=== PATIENT | female | born 1960 | race Caucasian/White ===

== ENCOUNTER 2016-09-18 20:30 | Emergency (ER) | payer BC ==
[~2016-09-18] VITALS: Ht 177.8 cm; Wt 77.3 kg
[2016-09-18 20:39] VITALS: TEMP 98.2
[2016-09-18 21:06] LABS: PH 8 (5-8); SQUAMOUS EPITHELIAL 0-2 /hpf; URINE APPEARANCE Clear; URINE BACTERIA Rare /hpf; URINE BILIRUBIN Negative (NEGATIVE); URINE BLOOD Negative (NEGATIVE); URINE COLOR Straw; URINE GLUCOSE Negative (NEGATIVE); URINE KETONE Negative (NEGATIVE); URINE RBC None Seen /hpf; URINE UROBILINOGEN Negative (NEGATIVE)
[2016-09-18] MEDS ORDERED: PAXIL 20MG20 MG PO (21:14)
[2016-09-18] MEDS ORDERED: AZOR 10 MG-20 M1 TAB PO (21:14)
[2016-09-18] MEDS ORDERED: BYSTOLIC10 MG PO (21:15)
[2016-09-18] MEDS ORDERED: ZOLOFT 50MG50 MG PO (21:15)
[2016-09-18 21:16] LABS: BASO # 0.1 (0.0-0.2); BASO % 0.7 % (0.0-2.0); EOS # 0.2 (0.0-0.7); EOS % 2.2 % (0-4.0); GRAN # 5.4 (1.4-6.5); GRAN % 51.7 % (42.2-75.2); HEMATOCRIT 41.7 % (37.0-47.0); HEMOGLOBIN 14.2 g/dl (12.5-16.0); LYMPH # 3.9 (1.2-3.4); LYMPH % 37.6 % (20.0-51.0); MEAN CELL VOLUME 88 fl (80.0-100.0); MEAN CORPUSCULAR HEMOGLOBIN 30 pg (27.0-31.0); MEAN CORPUSCULAR HGB CONC 34 g/dl (33.0-37.0); MONO # 0.8 (0.1-0.6); MONO % 7.3 % (1.7-9.3); PLATELET COUNT 309 K/mm3 (130-400); RED BLOOD COUNT 4.76 M/mm3 (4.10-5.30); REDCELL DISTRIBUTION WIDTH-CV 12.9 % (11.5-14.5); WHITE BLOOD COUNT 10.5 K/mm3 (4.8-10.8)
[2016-09-18] MEDS ORDERED: ASPIRIN 81M81 MG/TA2 PO (21:16)
[2016-09-18] MEDS ORDERED: LYRICA 100MG C100 M1 PO (21:17)
[2016-09-18 21:26] LABS: ADJUSTED CALCIUM 9.3 mg/dL (8.4-10.2); ALBUMIN 4.6 gm/dL (3.5-5.0); BILIRUBIN,TOTAL 0.7 mg/dL (0.0-1.0); CALCIUM 9.8 mg/dL (8.4-10.2); CREATININE, serum 1.14 mg/dL (0.52-1.25); TOTAL PROTEIN 7.8 gm/dL (6.4-8.2)
[2016-09-18] MEDS ORDERED: NORCO 325 MG-7.1 TAB PO (23:03)
[2016-09-18] MEDS ORDERED: FLEXERIL 1010 MG/TAB PO (23:03)
[2016-09-18 23:18] VITALS: BP 118/72; PULSE 85
== END 2016-09-18 23:20 | disposition home or self-care (01) ==
LOC: COL.ER 20:30
PROVIDERS: Emergency Medicine
DX: R10.11 Right upper quadrant pain (principal); I25.10 Atherosclerotic heart disease of native coronary artery without angina pectoris; I25.2 Old myocardial infarction; E11.9 Type 2 diabetes mellitus without complications; N26.1 Atrophy of kidney (terminal)
CPT/HCPCS: J1170; J2405; J7030; Q9967

== ENCOUNTER 2016-10-16 16:37 | Emergency (ER) | payer BC ==
[~2016-10-16] VITALS: Ht 177.8 cm; Wt 84.1 kg
[~2016-10-16 16:37] MED LIST: ASPIRIN 81M81 MG/TA2 PO; AZOR 10 MG-20 M1 TAB PO; BYSTOLIC10 MG PO; FLEXERIL 1010 MG/TAB PO; LYRICA 100MG C100 M1 PO; NORCO 325 MG-7.1 TAB PO; PAXIL 20MG20 MG PO; ZOLOFT 50MG50 MG PO
[2016-10-16 16:40] VITALS: BP 112/78; TEMP 98.2
[2016-10-16] MEDS ORDERED: FLEXERIL 1010 MG/TAB PO (17:22)
[2016-10-16 17:46] VITALS: PULSE 91
== END 2016-10-16 17:47 | disposition home or self-care (01) ==
LOC: COL.ER 16:37
DX: M54.16 Radiculopathy, lumbar region (principal); I25.2 Old myocardial infarction; E11.9 Type 2 diabetes mellitus without complications; I10 Essential (primary) hypertension; F32.9 Major depressive disorder, single episode, unspecified; F41.9 Anxiety disorder, unspecified; G89.29 Other chronic pain; M54.5 Low back pain; Z87.891 Personal history of nicotine dependence
CPT/HCPCS: J3360